=== PATIENT | male | born 1995 | race Asian ===

== ENCOUNTER → 2022-01-27 | Outpatient (CLI) | payer OTHER | LOC: M CARPUL 14:39 | PROVIDERS: ATTEND Nurse Practitioner Family | DX: I10 Essential (primary) hypertension (principal) ==

== ENCOUNTER → 2022-02-08 | Outpatient (REF) | LOC: M PLALAB 13:55 | PROVIDERS: ATTEND Internal Medicine | DX: R52 Pain, unspecified (principal); R06.02 Shortness of breath; M51.37 Other intervertebral disc degeneration, lumbosacral region ==

== ENCOUNTER → 2022-06-13 | Outpatient (CLI) | payer OTHER ==
[~2022-06-13] MED LIST: PROHANCE 279.3MG/ML 15ML VIAL ONE
== END ==
LOC: M PLAIMG 14:58
PROVIDERS: ATTEND Pain Medicine Interventional Pain Medicine
DX: M96.1 Postlaminectomy syndrome, not elsewhere classified (principal); M48.07 Spinal stenosis, lumbosacral region
CPT/HCPCS: 72158; A9576

== ENCOUNTER → 2022-08-19 | Outpatient (REF) | payer OTHER | LOC: M LAB REF 10:27 | PROVIDERS: ATTEND Internal Medicine Gastroenterology | DX: K29.70 Gastritis, unspecified, without bleeding (principal) ==